=== PATIENT | male | born 1990 | race Two or more races ===

== ENCOUNTER 2020-10-16 13:50 | Emergency (ER) | payer MEDICAID ==
[~2020-10-16] VITALS: Ht 177.8 cm; Wt 58.1 kg
[2020-10-16 13:57] VITALS: Ht 177.8 cm; Wt 58.1 kg
[2020-10-16 15:26] VITALS: BP 121/70
== END 2020-10-16 15:31 | disposition home or self-care (01) ==
LOC: ED 13:50
DX: S43.101A Unspecified dislocation of right acromioclavicular joint, initial encounter (principal); J45.909 Unspecified asthma, uncomplicated; V03.99XA Pedestrian with other conveyance injured in collision with car, pick-up truck or van, unspecified whether traffic or nontraffic accident, initial encounter; Y93.89 Activity, other specified; Y92.413 State road as the place of occurrence of the external cause; Y99.8 Other external cause status
CPT/HCPCS: 99406; J1885